=== PATIENT | male | born 1995 | race Caucasian/White ===

== ENCOUNTER 2020-10-29 03:06 | Outpatient (CLI) | payer MEDICAID | END 2020-10-29 03:07 | disposition critical access hospital (66) | LOC: EMS 03:06 | DX: R10.11 Right upper quadrant pain (principal) | CPT/HCPCS: A0425; A0429 ==

== ENCOUNTER 2020-10-29 03:19 | Emergency (ER) | payer MEDICAID ==
[2020-10-29 03:28] VITALS: BP 122/85
--- NOTE | 2020-10-29 03:34 | ED Physician Documentation ---
PD HPI ABD PAIN - Stated complaint Stated Complaint: ABD PX - Chief complaint Chief Complaint: Abd Pain - History obtained from History obtained from: Patient - History of Present Illness Timing - onset: How many hours ago (1) Timing - details: Abrupt onset Pain level max: 6 Pain level now: 1 Quality: Pain Location: RUQ, Epigastric Radiation: Chest (right lower chest) Improved by: Other (pain has significantly improved without specific intervention or apparent ameliorating factors) Worsened by: Palpation Associated symptoms: Chest pain. 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 The pain was initially severe but has gradually improved without specific intervention. Denies pleuritic component Review of Systems Constitutional: denies: Fever Cardiac: reports: Chest pain / pressure. denies: Palpitations, Pedal edema, Calf pain Respiratory: denies: Dyspnea, Cough (symptom onset when he coughed but otherwise has not had coughing), Hemoptysis, Wheezing GI: reports: Abdominal Pain. denies: Abdominal Swelling, Nausea, Vomiting PD PAST MEDICAL HISTORY - Past Medical History Past Medical History: No - Past Surgical History Past Surgical History: No - Allergies Allergies/Adverse Reactions: Allergies Allergy/AdvReac Type Severity Reaction Status Date / Time No Known Allergies Allergy Unknown Verified 10/29/20 05:09 - Social History Does the pt smoke?: No Smoking Status: Never smoker Does the pt drink ETOH?: Yes Does the pt have substance abuse?: Yes Substance Use and Type: Marijuana - Immunizations Immunizations are current?: Yes PD ED PE NORMAL - Vitals Vital signs reviewed: Yes - General General: Alert and oriented X 3, No acute distress, Well developed/nourished - Cardiac Cardiac: RRR, No murmur - Respiratory Respiratory: No respiratory distress, Clear bilaterally - Abdomen Abdomen: Soft, Non tender Results - Vitals Vitals: Vital Signs - 24 hr 10/29/20 10/29/20 10/29/20 03:26 03:28 05:30 Temperature 37.2 C 37.2 C Heart Rate 75 75 89 Respiratory 17 17 18 Rate Blood Pressure 122/85 H 122/85 H 122/85 H O2 Saturation 98 98 97 Oxygen O2 Source Room air - Rads (name of study) chest xray Radiology: Prelim report reviewed, See rad report PD MEDICAL DECISION MAKING - ED course Complexity details: reviewed results, re-evaluated patient, considered differ ential, d/w patient ED course: sudden onset of RUQ/right lower chest pain when he was coughing suggests differential diagnosis that includes, but not limited to, pneumothorax, chest/abdominal wall strain. Chest xray is negative for acute pathology and he is in NAD during ED stay. I discussed results with patient and instructed him to return if his symptoms worsen Departure - Departure Disposition: 01 Home, Self Care Clinical Impression: Strain of chest wall Condition: Good Instructions: ED Chest Pain Atypical Unkn Cause Forms: Activity restrictions Discharge Date/Time: 10/29/20 05:41
--- NOTE | 2020-10-29 07:41 | XRAY Report ---
PROCEDURE: Chest 2 View X-Ray INDICATIONS: Right chest pain TECHNIQUE: 2 view(s) of the chest. COMPARISON: None. FINDINGS: Surgical changes and devices: None. Lungs and pleura: No pleural effusions or pneumothorax. Lungs are clear. Mediastinum: Mediastinal contours are normal. Heart size is normal. Bones and chest wall: No suspicious bony abnormalities. Soft tissues appear unremarkable. IMPRESSION: No acute cardiopulmonary process demonstrated radiographically. No significant change fr om the preliminary report. Reviewed by: Vitaly Decker MD on 10/29/2020 7:40 AM PDT Approved by: Vitaly Decker MD on 10/29/2020 7:40 AM PDT Station ID: [id number]
== END 2020-10-29 05:41 | disposition home or self-care (01) ==
LOC: ED 03:19
DX: S29.011A Strain of muscle and tendon of front wall of thorax, initial encounter (principal); X50.9XXA Other and unspecified overexertion or strenuous movements or postures, initial encounter; Y93.89 Activity, other specified; R05 Cough; F12.90 Cannabis use, unspecified, uncomplicated
CPT/HCPCS: 99282; 99283

== ENCOUNTER 2021-04-26 13:54 | Emergency (ER) | payer MEDICAID ==
--- NOTE | 2021-04-26 14:14 | ED Physician Documentation ---
PD HPI CHEST PAIN - Stated complaint Stated Complaint: CHEST PX - Chief complaint Chief Complaint: Cardiac - History obtained from History obtained from: Patient - History of Present Illness Timing - onset: How many months ago (6) Pain level max: 0 Pain level now: 0 Quality: Other (burning) Location: Substernal Radiation: No: Jaw, Neck, Back, Abdominal, Left upper extremity, Right upper extremity Associated symptoms: Feeling faint / dizzy. No: Shortness of air, Diaphoresis, Nausea, Vomiting, General Weakness, Palpitations, Cough, Other - Additional information Additional information: 25 year old male with lightheadedness, and feels like his heart skipped a beat this afternoon. States it feels like his heart "beats weird" and then pauses for a second. Episode lasted about 20-30 minutes. has occured 3 times in the past. denies any past medical history. states there may be a history of acute coronary syndrome in the family. states using marijuana regularly. denies cigarettes and caffeine. denies IV drug use. denies history of anxiety. states started a new job recently. Review of Systems Ten Systems: 10 systems reviewed and negative Constitutional: denies: Fever, Chills Nose: denies: Rhinorrhea / runny nose, Congestion GI: denies: Vomiting, Diarrhea Skin: denies: Rash Musculoskeletal: denies: Neck pain, Back pain Neurologic: denies: Headache PD PAST MEDICAL HISTORY - Past Medical History Past Medical History: No - Past Surgical History Past Surgical History: No - Present Medications Home Medications: Ambulatory Orders Medication Instructions Recorded Confirmed No Known Home Medications 04/26/21 04/26/21 - Allergies Allergies/Adverse Reactions: Allergies Allergy/AdvReac Type Severity Reaction Status Date / Time No Known Allergies Allergy Unknown Verified 10/29/20 05:09 - Living Situation Living Situation: reports: With family Living Arrangement: reports: At home - Social History Does the pt smoke?: No Smoking Status: Never smoker Does the pt drink ETOH?: Yes Does the pt have substance abuse?: Yes - Immunizations Immunizations are current?: Yes PD ED PE NORMAL - Vitals Vital signs reviewed: Yes - General General: Alert and oriented X 3, No acute distress - HEENT HEENT: Moist mucous membranes - Neck Neck: Supple, no meningeal sign - Cardiac Cardiac: RRR, No murmur, Strong equal pulses - Respiratory Respiratory: No respiratory distress, Clear bilaterally - Abdomen Abdomen: Soft, Non tender, Non distended - Derm Derm: Warm and dry - Extremities Extremities: No edema - Neuro Neuro: Alert and oriented X 3 - Psych Psych: Normal mood, Normal affect Results - Vitals Vitals: Vital Signs - 24 hr 04/26/21 04/26/21 14:08 15:26 Temperature 36.8 C Heart Rate 110 H 66 Respiratory 18 17 Rate Blood Pressure 146/84 H 125/81 H O2 Saturation 99 97 Oxygen O2 Source Room air - EKG (time done) 1406 Rate: Rate (enter#) (95) Rhythm: NSR [place]: Normal Intervals: Normal MO QRS: Normal Ischemia: ST elevation c/w repol - Labs Labs: Laboratory Tests 04/26/21 04/26/21 04/26/21 14:37 14:37 14:37 WBC 5.3 RBC 4.85 Hgb 15.2 Hct 44.4 MCV 91.5 MCH 31.3 H MCHC 34.2 RDW 12.4 Plt Count 188 MPV 10.9 Neut # (Auto) 3.4 Lymph # (Auto) 1.5 [place] # (Auto) 0.4 Eos # (Auto) 0.1 Baso # (Auto) 0.0 Absolute Nucleated RBC 0.00 Nucleated RBC % 0.0 Sodium 138 Potassium 4.2 Chloride 105 Carbon Dioxide 25 Anion Gap 8.0 BUN 16 Creatinine 0.9 Estimated GFR (MDRD) 103 Glucose 111 H Calcium 9.5 Total Bilirubin 0.7 AST 17 ALT 13 Alkaline Phosphatase 64 Troponin I High Sens 2.8 Total Protein 7.2 Albumin 4.6 Globulin 2.6 Albumin/Globulin Ratio 1.8 Lipase 32 TSH Free T4 04/26/21 14:37 WBC RBC Hgb Hct MCV MCH MCHC RDW Plt Count MPV Neut # (Auto) Lymph # (Auto) [place] # (Auto) Eos # (Auto) Baso # (Auto) Absolute Nucleated RBC Nucleated RBC % Sodium Potassium Chloride Carbon Dioxide Anion Gap BUN Creatinine Estimated GFR (MDRD) Glucose Calcium Total Bilirubin AST ALT Alkaline Phosphatase Troponin I High Sens Total Protein Albumin Globulin Albumin/Globulin Ratio Lipase TSH 0.52 Free T4 0.84 - Rads (name of study) cxr Radiology: Final report received, EMP read contemporaneously, See rad report (No acute abnormality) PD MEDICAL DECISION MAKING - ED course Complexity details: reviewed results, re-evaluated patient, considered differential (No ST elevation [place], no aortic dissection, no PE, no tension pneumothorax, no aortic aneurysm), d/w patient ED course: Patient with intermittent palpitations of unclear etiology. Possible PACs, PVCs or arrhythmia. No abnormalities on telemetry here. No significant lab abnormalities. No acute findings on EKG. We will have him follow-up with his doctor for a Holter monitor and further care. Patient counseled regarding signs and symptoms for which I believe and urgent re-evaluation would be necessary. Patient with good understanding of and agreement to plan and is comfortable going home at this time This document was made in part using voice recognition software. While efforts are made to proofread this document, sound alike and grammatical errors may occur. Departure - Departure Disposition: 01 Home, Self Care Clinical Impression: Palpitations Condition: Good Instructions: ED Palpitations Follow-Up: your,doctor in 1-2 weeks [Other] Comments: Please follow-up with your doctor for further care. You can also follow-up with the walk-in clinic on [facility]. You should have a Holter monitor performed for any palpitations. Your testing does not show any acute abnormalities today. Return if you worsen. Discharge Date/Time: 04/26/21 15:29
--- NOTE | 2021-04-26 14:42 | XRAY Report ---
PROCEDURE: Chest 1 View X-Ray INDICATIONS: Chest pain TECHNIQUE: One view of the chest was acquired. COMPARISON: 10/29/2020 FINDINGS: Surgical changes and devices: None. Lungs and pleura: No pleural effusions or pneumothorax. Lungs are clear. Mediastinum: Mediastinal contours appear normal. Heart size is normal. Bones and chest wall: No suspicious bony lesions. Overlying soft tissues appear unremarkable. IMPRESSION: No acute cardiopulmonary process demonstrated radiographically. Reviewed by: Vitaly Decker MD on 04/26/2021 2:41 PM PDT Approved by: Vitaly Decker MD on 04/26/2021 2:41 PM PDT Station ID: [id number]
[2021-04-26 14:43] LABS: BASOPHILS % (AUTO) 0.6 %; EOSINOPHILS # (AUTO) 0.1 10^3/uL (0.0-0.7); EOSINOPHILS % (AUTO) 1.3 %; HCT - HEMATOCRIT 44.4 % (42.0-52.0); HGB - HEMOGLOBIN 15.2 g/dL (14.0-18.0); LYMPHOCYTES # (AUTO) 1.5 10^3/uL (1.5-3.5); LYMPHOCYTES % (AUTO) 27.5 %; MEAN CORPUSCULAR HEMOGLOBIN 31.3 pg (27.0-31.0); MEAN CORPUSCULAR HGB CONC 34.2 g/dL (32.0-36.0); MEAN CORPUSCULAR VOLUME 91.5 fL (80.0-94.0); MEAN PLATELET VOLUME 10.9 fL (7.4-11.4); MONOCYTES # (AUTO) 0.4 10^3/uL (0.0-1.0); MONOCYTES % (AUTO) 6.6 %; NEUTROPHILS # (AUTO) 3.4 10^3/uL (1.5-6.6); NEUTROPHILS % (AUTO) 63.6 %; PLT - PLATELET COUNT 188 10^3/uL (130-450); RED BLOOD COUNT 4.85 10^6/uL (4.70-6.10); RED CELL DISTRIBUTION WIDTH 12.4 % (12.0-15.0); WHITE BLOOD COUNT 5.3 x10^3/uL (4.8-10.8)
[2021-04-26 15:03] LABS: ALBUMIN 4.6 g/dL (3.2-5.5); ALBUMIN/GLOBULIN RATIO 1.8 (1.0-2.2); BILIRUBIN,TOTAL 0.7 mg/dL (0.2-1.0); CALCIUM 9.5 mg/dL (8.5-10.3); CREATININE 0.9 mg/dL (0.6-1.2); POTASSIUM 4.2 mmol/L (3.5-5.0); TOTAL PROTEIN 7.2 g/dL (6.7-8.2)
[2021-04-26 15:14] LABS: THYROID STIMULATING HORMONE 0.52 uIU/mL (0.34-5.60)
[2021-04-26 15:17] LABS: FREE T4 (FREE THYROXINE) 0.84 ng/dL (0.58-1.64)
[2021-04-26 15:27] VITALS: BP 125/81
== END 2021-04-26 15:29 | disposition home or self-care (01) ==
LOC: ED 13:54
DX: R00.2 Palpitations (principal)
CPT/HCPCS: 36415; 80053; 83690; 84439; 84443; 84484; 85025; 93005; 99284

== ENCOUNTER 2024-02-23 13:55 | Emergency (ER) | payer MEDICAID, OTHER ==
--- NOTE | 2024-02-23 15:59 | ED Physician Documentation ---
History of Present Illness - Stated complaint Stated Complaint: NECK PX - Chief complaint Chief Complaint: Back Pain - History obtained from History obtained from: Patient - Additonal information Additional information: Patient comes to the emergency department chief complaint of neck pain for about the last 5 days. The patient states that he was stretching his neck and then decided to try to "crack" his neck. He pushed on each side of his jaw while twisting his head and suddenly felt a lancinating pain that went from the middle of his neck into both of his shoulders. He states it seems to be slightly skewed toward the left but that he feels it on both sides. 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 The patient states he has been at work every day since and that his pain has gotten worse. It is now spread down to his bilateral scapular area. He denies any pain in his upper extremities or any numbness or tingling in his hands. No weakness. No other complaints at this time. PD PAST MEDICAL HISTORY - Past Medical History Psych: ADD/ADHD - Past Surgical History Past Surgical History: No - Present Medications Home Medications: Ambulatory Orders Medication Instructions Recorded Confirmed HYDROcod/ACETAM 5/325 [[place] 5/325] 1 - 2 tablet PO Q6H PRN #14 tablet 02/23/24 predniSONE [Deltasone] 10 mg PO [id number] #42 tab 02/23/24 - Allergies Allergies/Adverse Reactions: Allergies Allergy/AdvReac Type Severity Reaction Status Date / Time calcium carbonate [From Tums] AdvReac Nausea Verified 02/23/24 14:10 - Social History Does the pt smoke?: No Smoking Status: Never smoker Does the pt drink ETOH?: Yes Does the pt have substance abuse?: Yes - Immunizations Immunizations are current?: Yes PD ED PE NORMAL - Vitals Vital signs reviewed: Yes - General General: Alert and oriented X 3, No acute distress, Well developed/nourished - HEENT HEENT: Atraumatic, EOMI, Moist mucous membranes - Neck Neck: Supple, no meningeal sign, Other (Tenderness palpation without step-off very focally over about the C3 level in the midline. Mild diffuse muscular tenderness over the bilateral trapezius distribution.) - Respiratory Respiratory: No respiratory distress - Back Back: No spinal TTP - Derm Derm: Normal color, Warm and dry, No rash - Extremities Extremities: No deformity - Neuro Neuro: Alert and oriented X 3, No motor deficit (Equal porter luggage strength.), No sensory deficit - Psych Psych: Normal mood, Normal affect Results - Vitals Vitals: Oxygen O2 Source Room air - Rads (name of study) Cervical spine x-ray series Relevant Findings:: Final report received, See rad report (Negative) PD Medical Decision Making - ED course Complexity details: reviewed results, re-evaluated patient, considered differential, d/w patient ED course: The patient was sent for x-ray series of the C-spine and treated symptomatically with Decadron and Tylenol at his request. X-rays were unremarkable. The patient was feeling better after symptomatic management. We have discussed symptomatic management at home as well as the usual indications for return and follow-up. Departure - Departure Disposition: Home, Self Care Clinical Impression: Cervical strain Qualifiers: Encounter type: initial encounter Qualified Code(s): S16.1XXA - Strain of muscle, fascia and tendon at neck level, initial encounter Condition: Stable Instructions: ED Sprain Strain Neck Prescriptions: predniSONE [Deltasone] 10 mg PO [id number] #42 tab HYDROcod/ACETAM 5/325 [[place] 5/325] 1 - 2 tablet PO Q6H PRN #14 tablet PRN Reason: Pain Comments: The x-rays of your neck look good. You have most likely strained the soft tissues, which could include muscle or tendon or less likely, ligament. You have been treated with a dose of steroid here in the emergency department. A prescription for a steroid taper as well as some pain medication has been electronically transmitted to the [facility] pharmacy in [place]. Please take these as directed/as needed. You may also take your muscle relaxers if this is helpful. Please avoid drinking any alcohol while you are on the pain medications and muscle relaxers. Because the prescription pain medication contains Tylenol, you should avoid taking Tylenol within 4 hours of the pain medication or vice versa. It would probably be helpful to take a few days off work; however, if you feel like you cannot do this, please try to minimize the time you spend with your head oriented down. It would be helpful for you to follow-up in primary care and get established as soon as possible. Our follow-up clinic for this week is the [facility]. You may call them at [phone] set up an appointment. Please be sure to tell them you are in the ED on this day and that you are following up that visit. If your symptoms do not resolve within the next 2 to 3 weeks, you should follow-up in primary care to discuss whether MRI should be done. It would be best if you make that appointment now so that you can be seen in a timely manner if needed. Discharge Date/Time: 02/23/24 17:11
[2024-02-23] MEDS: DEXAMETHASONE 10 MG/ML VIAL IM STA (16:16)
[2024-02-23] MEDS: ACETAMINOPHEN 325 MG TABLET PO STA (16:16)
--- NOTE | 2024-02-23 16:53 | XRAY Report ---
PROCEDURE: Cervical Spine 2-3V INDICATIONS: C3-4 pain after injury TECHNIQUE: 3 view(s) of the cervical spine were acquired. COMPARISON: None. FINDINGS: Bones: No fractures or dislocations to the C7-T1 level. The lateral masses of C1 appear intact o n the odontoid view. No suspicious bony lesions. Soft tissues: No prevertebral soft tissue swelling. IMPRESSION: No displaced fracture or traumatic subluxation. Reviewed by: Francisco Espinosa MD on 02/23/2024 4:52 PM PDT Approved by: Francisco Espinosa MD on 02/23/2024 4:52 PM PDT Station ID: [id number]
[2024-02-23 17:24] VITALS: BP 140/95; O2SAT 100
== END 2024-02-23 17:11 | disposition home or self-care (01) ==
LOC: ED 13:55
DX: S16.1XXA Strain of muscle, fascia and tendon at neck level, initial encounter (principal); X50.1XXA Overexertion from prolonged static or awkward postures, initial encounter
CPT/HCPCS: 72040; 96372; 99283; 99284; A9270